=== PATIENT | female | born 1975 | race Caucasian/White ===

== ENCOUNTER 2021-01-14 18:41 | Outpatient (REF) | payer BC, MEDICARE, SELFPAY ==
--- NOTE | ~2021-01-14 | MR_ITS ---
EXAMINATION: MR CERVICAL SPINE WITHOUT CONTRAST CLINICAL INFORMATION: 45-year-old with complaints of neck pain radiating to both shoulders, with C4-5 radicular symptoms. Cervical disc disorder. COMPARISON: 04/22/2019 MRI. TECHNIQUE: MRI of the cervical spine was obtained using routine sequences without contrast. FINDINGS: Alignment: Normal. No spondylolisthesis or retrolisthesis. Craniocervical Junction/C1-C2 Articulations:?Intact and aligned. Visualized Intracranial Structures: Within normal limits. Vertebral Bodies: Normal height. Bone Marrow: No significant marrow-replacing process or bone marrow edema. C2-C3: Disc space height is well maintained. There is uncovertebral spurring bilaterally with a left paracentral disc protrusion stable in appearance with slight flattening of the dural sac asymmetric to the left without cord impingement unchanged in appearance. No significant canal or neuroforaminal stenosis. C3-C4: Disc space height is well maintained. Tiny central disc protrusion noted stable in appearance. Minor uncovertebral spurring noted left more than right unchanged in appearance with no significant canal or neuroforaminal stenosis. C4-C5: Moderate loss of disc space height is similar to the previous exam. Central disc herniation again noted which appears slightly diminished in size since previous exam on the axial views, with flattening of the central dural sac without cord impingement. The AP diameter of the central canal at this level now measures 7 mm compared to 6 mm on the previous exam consistent with slight improvement in the canal dimensions. Mild central canal stenosis though present. Bilateral uncovertebral spurring is again noted with [id number] right-sided and mild left-sided neural foraminal stenosis stable in appearance. C5-C6: Mild disc space height loss is stable from previous exam. Broad-based left paramedian to subarticular disc protrusion with mild flattening of the dural sac on the left is stable. Bilateral uncovertebral spurring is again noted, with [id number] left-sided and moderate right-sided neural foraminal stenosis, stable in appearance. C6-C7: Slight loss of disc space height stable in appearance. Slight broad-based disc bulging and mild flattening of the dural sac is stable. Minor anterior marginal endplate spurring unchanged. Bilateral uncovertebral disc osteophyte complex is again noted, with [id number] bilateral neural foraminal stenosis stable in appearance. C7-T1: Disc space height is well maintained without disc herniation or spondylosis. Mild facet hypertrophic changes are noted without significant canal or neuroforaminal stenosis, stable in appearance. T1-T2: Normal disc space height and signal without disc herniation or spondylosis and no significant facet arthrosis, canal or neuroforaminal stenosis. The cervical and visualized upper thoracic spinal cord is normal in signal intensity throughout, without focal lesion, edema or syrinx formation. Previously noted ventral cord impingement at C4-5 is improved. MR/MR cervical spine wo con IMPRESSION: 1. Mild decrease in size of previously noted C4-5 central disc herniation, with decreased mass effect on the ventral aspect of the thecal sac, with an improved contour to the anterior cord at this level. 2. Otherwise multilevel DDD, disc herniations and uncovertebral arthrosis bilaterally with the multilevel bilateral neural foraminal stenosis is largely stable in appearance.
== END 2021-01-14 18:42 | disposition home or self-care (01) ==
LOC: HO.MRI 18:41
PROVIDERS: PCP Hospitalist; Visit Provider Internal Medicine
DX: M50.121 Cervical disc disorder at C4-C5 level with radiculopathy (principal); M53.9 Dorsopathy, unspecified
CPT/HCPCS: 72141

== ENCOUNTER 2021-09-27 15:50 | Outpatient (REF) | payer BC, MEDICARE, SELFPAY ==
--- NOTE | ~2021-09-27 | MM_ITS ---
EXAMINATION: MM SCREENING DIGITAL BREAST TOMOSYNTHESIS, BILATERAL CLINICAL INFORMATION: Screening. Asymptomatic. The lifetime risk of breast cancer based on the Tyrer-Cuzick Model is 19%. COMPARISON: Mammography: 03/02/2019, 04/20/2017 TECHNIQUE: Digital breast tomosynthesis is performed in both the craniocaudal and mediolateral oblique views along with computer-aided detection (CAD). Synthesized 2D images are generated from the tomosynthesis. FINDINGS: The breasts are heterogeneously dense, which may obscure small masses (ACR BI-RADS breast composition Category c). There are no significant masses, abnormal calcifications, or other abnormalities. Parenchymal pattern is similar to prior studies. No developing density. The axilla and skin contours are unremarkable. MM/MM tomosynthesis screening BI IMPRESSION: No mammographic evidence of malignancy. ASSESSMENT: BI-RADS 1: Negative RECOMMENDATION: Routine annual mammography screening. This patient's information was entered into a reminder system with a target due date for their next mammogram.
== END 2021-09-27 15:51 | disposition home or self-care (01) ==
LOC: HO.MAMMO 15:50
PROVIDERS: Visit Provider Internal Medicine
DX: Z12.31 Encounter for screening mammogram for malignant neoplasm of breast (principal)
CPT/HCPCS: 77063; 77067

== ENCOUNTER 2022-07-28 07:46 | Outpatient (REF) | payer OTHER, MEDICARE, SELFPAY ==
[2022-07-28 11:18] LABS: MANUAL DIFF FLAG NO
[2022-07-28 11:34] LABS: Basophils Absolute Auto 0.1 X10*3/uL (0.0-0.2); Basophils Percent Auto 0.9 % (0-2); Eosinophils Absolute Auto 0.2 X10*3/uL (0.0-0.4); Eosinophils Percent Auto 3.3 % (0-4); Hematocrit 40.8 % (37.0-47.0); Hemoglobin 12.9 g/dl (12.0-16.0); Imm Gran Abs Auto 0.01 X10*3/uL (0.00-0.03); Imm Gran Pct Auto 0.2 % (0.0-0.4); Lymphocytes Percent Auto 34.6 % (20-40); Mean Corpuscular HGB Conc 31.6 g/dl (31.0-35.0); Mean Corpuscular Hemoglobin 29.6 pg (27.0-33.0); Mean Corpuscular Volume 93.6 fL (80.0-98.0); Monocytes Absolute Auto 0.4 X10*3/uL (0.1-1.2); Monocytes Percent Auto 6.7 % (2-11); Neutrophils Absolute Auto 3.2 x10*3/uL (2.0-8.3); Neutrophils Percent Auto 54.3 % (45-73); Platelet Count 339 X10*3/uL (160-400); Red Blood Count 4.36 X10*6/uL (4.20-5.50); Red Cell Distribution Width 13.1 % (11.0-16.0); White Blood Count 5.8 X10*3/uL (4.8-10.8)
[2022-07-28 11:48] LABS: Alanine Aminotransferase 11 U/L (0-31); Anion Gap 12 (12-20); Aspartate Amino Transferase 14 U/L (5-31); Blood Urea Nitrogen 11 mg/dL (9-16); Calcium 9.2 mg/dL (8.4-10.2); Carbon Dioxide 27 mmol/L (22-29); Chloride 106 mmol/L (96-108); Cholesterol 156 mg/dL; Estimated Glomerular Filt Rate > 60; Glucose Fasting 100 mg/dL (60-99); HDL Cholesterol 64 mg/dL; LDL Cholesterol Calculated 83 mg/dl; Potassium 4.4 mmol/L (3.3-5.1); Sodium 141 mmol/L (135-145); Triglycerides 45 mg/dL
[2022-07-28 12:12] LABS: Vitamin D 25-OH Total 21.8 ng/mL (>30)
== END 2022-07-28 07:47 | disposition home or self-care (01) ==
LOC: HO.HMGCLDS 07:46
PROVIDERS: PCP Internal Medicine; Visit Provider Internal Medicine
DX: Z00.01 Encounter for general adult medical examination with abnormal findings (principal); Z13.220 Encounter for screening for lipoid disorders
CPT/HCPCS: 36415; 80048; 80061; 82306; 84450; 84460; 85025

== ENCOUNTER 2022-10-06 08:30 | Outpatient (REF) | payer OTHER, MEDICARE, SELFPAY ==
--- NOTE | ~2022-10-06 | MM_ITS ---
EXAMINATION: MM DIAGNOSTIC DIGITAL BREAST TOMOSYNTHESIS, BILATERAL US DIAGNOSTIC ULTRASOUND BREAST, RIGHT CLINICAL INFORMATION: Due for yearly. 2 day history tender palpable nodule posteromedial right breast with erythema. The lifetime risk of breast cancer based on the Tyrer-Cuzick Model is 14%. COMPARISON: Mammography: 09/27/2021, 03/02/2019, 5 04/20/2017 (baseline). TECHNIQUE: Digital breast tomosynthesis is performed in both the craniocaudal and mediolateral oblique views along with computer-aided detection (CAD). Synthesized 2D images are generated from the tomosynthesis. Additional right spot CC view is obtained. Ultrasound right breast is targeted to the area of clinical concern posterior medial breast. Grayscale imaging and color Doppler are performed without and with harmonics. FINDINGS: There are scattered areas of fibroglandular density (ACR BI-RADS breast composition Category b). Breast tissue composition borders on heterogeneously dense. There is subtle oval nodular density at site of clinical concern posterior medial right breast near the sternum. The remainder of the bilateral breasts show no significant changes from prior studies. No developing density or architectural abnormality. No abnormal calcifications. The axilla are unremarkable. Ultrasound right breast demonstrates irregular hypoechoic branching predominantly intradermal lesion at site of clinical concern with possible subdermal extension. Overall dimensions are grossly 1.5 cm in length by 0.5 cm thickness. There is surrounding hyperemia on color Doppler. No color flow within the hypoechoic area. There is focal erythema noted in the overlying skin on visual inspection. Results and management options are discussed with the patient at time of visit. The finding most likely represents inflamed intradermal cysts/sebaceous cyst. Patient to follow-up with her primary care provider for clinical evaluation and additional follow-up as needed. Findings reviewed with [facility]. PCP office to be notified. MM/MM tomosynthesis diagnostic BI IMPRESSION: Right: -Palpable concern likely inflamed sebaceous cyst with possible subdermal extension. -Remainder right breast unremarkable. Left: -No mammographic evidence of malignancy. ASSESSMENT: BI-RADS 3: Probably Benign RECOMMENDATION: 1. Clinical evaluation and follow-up with ongoing management as appropriate. If clinically indicated, further evaluation may be considered with surgical consult. This ultrasound may serve as baseline for follow-up ultrasound if warranted. 2. Otherwise, routine annual screening mammography. This patient's information was entered into a reminder system with a target due date for their next mammogram.
== END 2022-10-06 08:31 | disposition home or self-care (01) ==
LOC: HO.MAMMO 08:30
PROVIDERS: PCP Internal Medicine; Visit Provider Internal Medicine
DX: N60.01 Solitary cyst of right breast (principal)
CPT/HCPCS: 76642; 77062; 77066

== ENCOUNTER 2023-10-07 08:50 | Outpatient (REF) | payer OTHER, MEDICARE, SELFPAY | END 2023-10-07 08:51 | disposition home or self-care (01) | LOC: HO.MAMMO 08:50 | PROVIDERS: PCP Internal Medicine; Visit Provider Internal Medicine | DX: Z12.31 Encounter for screening mammogram for malignant neoplasm of breast (principal) | CPT/HCPCS: 77063; 77067 ==

== ENCOUNTER → 2023-10-07 09:15 | Outpatient (BNV) | payer OTHER, MEDICARE, SELFPAY | PROVIDERS: PCP Internal Medicine; Visit Provider Radiology Diagnostic Radiology | DX: Z12.31 Encounter for screening mammogram for malignant neoplasm of breast (principal) | CPT/HCPCS: 77063; 77067 ==

== ENCOUNTER 2024-03-07 08:42 | Outpatient (AMB) | payer OTHER, MEDICARE, SELFPAY ==
[2024-03-07 08:49] VITALS: BP 142/80; PULSE 80; TEMP 36.6; O2SAT 97
--- NOTE | 2024-03-07 08:49 | AM.OFFWIN_ITS ---
Intake Vital Signs 03/07/24 08:49 Height 5 ft 8 in BP 142/80 H Blood Pressure Location Rt brachial Position Sitting Pulse 80 Pulse Source Pulse Oximeter Temp 97.8 F Temp Source Oral Pulse Oximetry (%) 97 Oxygen Delivery Method Room Air Intake Visit Reasons: EP Swollen ankle twisted over weekend Intake Note: pt is here for swollen ankle due to twisting ankle over the weekend Patient Tobacco Use Status: Former Tobacco user Allergies morphine Allergy (Unknown, Verified 03/07/24 09:05) hives Medication List - Last Reconciled 03/07/24 by Sal Meraz MD acetaminophen (Tylenol Extra Strength) 500 mg PO Q6H PRN albuterol sulfate 90 mcg/actuation 2 puffs inhalation Q6H PRN bupropion HCl XL 600 mg PO DAILY cholecalciferol (vitamin D3) 1,250 mcg PO QWEEK 3 months cyclobenzaprine 5 mg PO BID PRN dextroamphetamine-amphetamine 20 mg ER 1 cap PO DAILY ibuprofen 800 mg PO TID PRN lorazepam 0.5 mg PO DAILY Do you need a note to return to daycare/school/sports/work: No HPI EP Swollen ankle twisted over weekend HPI Details 48-year-old female presents to the [facility] for a sick visit. Over the weekend, patient twisted her ankle at the bottom of the steps inside the house. Her ankle is swollen with bruising over the foot. She has discomfort on bearing weight and is walking with a limp. [facility] Medical History Annual visit for general adult medical examination with abnormal findings Cervical disc disorder at C4-C5 level with radiculopathy Degenerative disc disease, cervical Depression with anxiety Mild intermittent asthma Osteoarthritis of hips, bilateral Vitamin D deficiency Surgical History History of arthroplasty of left hip Hx of section Family History Father Substance use disorder Paternal Uncle Prostate cancer Substance use disorder Mother Substance use disorder Mental health disorder Maternal Uncle Substance use disorder Maternal Uncle Substance use disorder Maternal Uncle Substance use disorder Social History Housing: House Alcohol intake: current Patient Tobacco Use Status: Former Tobacco user e-Cigarette/Vaping Use: Never Used service: No Current occupational status: unemployed Cognitive needs: No Hearing needs: No Vision needs: Yes Physical Exam Vital Signs: Last Vital Signs Temp 97.8 F 03/07/24 08:49 Pulse 80 03/07/24 08:49 BP 142/80 H 03/07/24 08:49 Pulse Ox 97 03/07/24 08:49 Oxygen Delivery Method Room Air 03/07/24 08:49 Extrem Other: Left foot: Significant swelling over the medial and lateral malleolus. Pain on flexion of the foot. Bruising over the dorsum of the foot more laterally. Pain on palpation over the head of the 4th and 5th metatarsal. Assessment & Plan Assessment & Plan (1) Contusion of foot, left: Code(s): S90.32XA - Contusion of left foot, initial encounter Plan: X-ray images were personally reviewed by me. No fracture seen. DIXIE Wrap, Air Cast and 600 mg Motrin. Advised to use ice packs. Orders: Orders XR foot LT 2V Today S90.32XA - Contusion of left foot, initial encounter XR ankle LT min 3V Today S93.402A - Sprain of unspecified ligament of left ankle, initial encounter Coding Level of Care Code Est Pt Level 4 (51663) Diagnoses Contusion of foot, left S90.32XA
== END 2024-03-07 09:59 | disposition home or self-care (01) ==
PROVIDERS: PCP Internal Medicine; Visit Provider Internal Medicine
DX: S90.32XA Contusion of left foot, initial encounter (principal)
CPT/HCPCS: 99214

== ENCOUNTER 2024-03-07 09:09 | Outpatient (REF) | payer OTHER, MEDICARE, SELFPAY ==
--- NOTE | ~2024-03-07 | XR_ITS ---
EXAMINATION: XR LEFT ANKLE XR LEFT FOOT CLINICAL INFORMATION: Contusion of left foot. Left ankle sprain. COMPARISON: None. TECHNIQUE: AP, lateral and oblique views of the left foot were obtained. AP and oblique views of the left ankle were obtained. FINDINGS: Alignment is anatomic. Ankle mortise is maintained. The talar dome is intact. Posterior calcaneal spur. There is a linear fragment seen along the lateral aspect of the calcaneus and possibly the cuboid with surrounding soft tissue swelling possibly representing an avulsion fracture. XR/XR ankle LT 2V IMPRESSION: Possible avulsion fracture involving the lateral aspect of the calcaneus and possibly the cuboid. Advise correlation with point tenderness on exam.
--- NOTE | ~2024-03-07 | XR_ITS ---
EXAMINATION: XR LEFT ANKLE XR LEFT FOOT CLINICAL INFORMATION: Contusion of left foot. Left ankle sprain. COMPARISON: None. TECHNIQUE: AP, lateral and oblique views of the left foot were obtained. AP and oblique views of the left ankle were obtained. FINDINGS: Alignment is anatomic. Ankle mortise is maintained. The talar dome is intact. Posterior calcaneal spur. There is a linear fragment seen along the lateral aspect of the calcaneus and possibly the cuboid with surrounding soft tissue swelling possibly representing an avulsion fracture. XR/XR foot LT min 3V IMPRESSION: Possible avulsion fracture involving the lateral aspect of the calcaneus and possibly the cuboid. Advise correlation with point tenderness on exam.
== END 2024-03-07 09:10 | disposition home or self-care (01) ==
LOC: HO.HMGCX 09:09
PROVIDERS: PCP Internal Medicine; Visit Provider Internal Medicine
DX: S90.32XA Contusion of left foot, initial encounter (principal); S93.402A Sprain of unspecified ligament of left ankle, initial encounter
CPT/HCPCS: 73600; 73630

== ENCOUNTER 2024-03-28 09:56 | Outpatient (AMB) | payer OTHER, MEDICARE, SELFPAY ==
[2024-03-28 09:58] VITALS: BP 144/88; PULSE 89; O2SAT 99; BMI 33.5
--- NOTE | 2024-03-28 09:58 | A.OFFPC_ITS ---
Vital Signs 03/28/24 09:58 Height 5 ft 8 in Weight 220 lb 8 oz BMI 33.5 BP 144/88 H Blood Pressure Location Lt brachial Position Sitting Pulse 89 Pulse Source Pulse Oximeter Pulse Oximetry (%) 99 Oxygen Delivery Method Room Air Intake Visit Reasons: follow-up to ankle/foot injury Intake Note: Pt is here today for follow up from walk in 03/07/24, pt states she still in pain. Allergies morphine Allergy (Unknown, Verified 03/28/24 10:10) hives Medication List - Last Reconciled 03/28/24 by Marti Mchugh MD acetaminophen (Tylenol Extra Strength) 500 mg PO Q6H PRN albuterol sulfate 90 mcg/actuation 2 puffs inhalation Q6H PRN bupropion HCl XL 600 mg PO DAILY cholecalciferol (vitamin D3) 1,250 mcg PO QWEEK 3 months cyclobenzaprine 5 mg PO BID PRN dextroamphetamine-amphetamine 20 mg ER 1 cap PO DAILY ibuprofen 800 mg PO TID PRN lorazepam 0.5 mg PO DAILY Tobacco use date assessed: 03/28/24 HPI follow-up to ankle/foot injury HPI Details 48-year-old lady here today for follow-u p after recent walk-in clinic visit, 03/07/2024, where she came in complaining of pain and swelling in left ankle, after she twisted her ankle at the bottom of the steps inside her house. X-ray of foot and ankle showed possible avulsion fracture involving the lateral aspect of the calcaneus and possibly the cuboid. She was given a splint during that visit which she took off immediately, as it was giving her more pain. Has been walking on affected foot since that visit but unable to walk for extended periods of time as it starts hurting. [facility] Medical History Avulsion fracture of calcaneus with delayed healing Vitamin D deficiency Annual visit for general adult medical examination with abnormal findings Cervical disc disorder at C4-C5 level with radiculopathy Depression with anxiety Degenerative disc disease, cervical Mild intermittent asthma Osteoarthritis of hips, bilateral Surgical History Hx of section History of arthroplasty of left hip Family History Father Substance use disorder Paternal Uncle Prostate cancer Substance use disorder Mother Substance use disorder Mental health disorder Maternal Uncle Substance use disorder Maternal Uncle Substance use disorder Maternal Uncle Substance use disorder Social History Housing: House Alcohol intake: current Patient Tobacco Use Status: Former Tobacco user e-Cigarette/Vaping Use: Never Used service: No Current occupational status: unemployed Cognitive needs: No Hearing needs: No Vision needs: Yes Questionnaire Thrive Questionnaire Date Thrive assessed: 07/15/22 CARLOS-7 AMB Questionnaire CARLOS-7 Date CARLOS - 7 assessed: 07/15/22 Source: Developed by Drs. Jesus Douglas, Jessenia Andrew, Charli Person and colleagues, with an educational halie from [employer] Review of Systems Const All systems reviewed & are unremarkable except as noted in HPI and below Physical exam (Primary Care) Vital Signs: Last Vital Signs Pulse 89 03/28/24 09:58 BP 144/88 H 03/28/24 09:58 Pulse Ox 99 03/28/24 09:58 Oxygen Delivery Method Room Air 03/28/24 09:58 BMI result Body Mass Index 33.5 Tobacco/Smoking Status: Tobacco use Status Tobacco use date assessed 03/28/24 03/28/24 10:02 Patient Tobacco Use Status Former Tobacco user 03/28/24 10:02 e-Cigarette/Vaping Use Never Used 03/28/24 10:02 Thrive Assessment: Date of Thrive Assessment Date Thrive assessed 07/15/22 03/28/24 10:02 Const Other: Alert oriented x3, no acute distress noted ambulatory with a slight limp favoring left leg Extrem Other: Decreased range of motion of left ankle, tenderness on palpation over lateral aspect of left malleolus with slight swelling overlying affected area. Assessment and Plan Assessment & Plan (1) Avulsion fracture of calcaneus with delayed healing: Code(s): S92.009G - Unspecified fracture of unspecified calcaneus, subsequent encounter for fracture with delayed healing Plan: Left foot placed in rigid boot. Advised to rest affected foot, apply ice to affected area every 4 hours as needed, may take ibuprofen as needed for pain. Referred to orthopedics for further evaluation management as patient is still experiencing pain on weight-bearing. Orders: Referrals Orthopedics Referral S92.009G - Unspecified fracture of unspecified calcaneus, subsequent encounter for fracture with delayed healing Coding Level of Care Code Est Pt Level 4 (99517) Diagnoses Avulsion fracture of calcaneus with delayed healing S92.009G
== END 2024-03-28 11:11 | disposition home or self-care (01) ==
LOC: HO.HMGC 09:56
PROVIDERS: PCP Internal Medicine; Visit Provider Internal Medicine
DX: S92.009 Unspecified fracture of unspecified calcaneus (principal)
CPT/HCPCS: 99214

== ENCOUNTER 2024-04-14 11:10 | Outpatient (AMB) | payer OTHER, MEDICARE, SELFPAY ==
--- NOTE | 2024-04-14 11:12 | A.OFFVIS_ITS ---
Intake Visit Reasons: FC- Avulsion fx of calcaneus LT foot Intake Note: Suzanne is a 48 year old female who presents today for a evaluation of her left calcaneus fx, DOI 03/05/24. Patient reports she rolled her ankle when she missed the last step when going down the stairs. She expresses having a pulling sensati on with sitting and walking. Allergies morphine Allergy (Unknown, Verified 04/14/24 11:20) hives HPI HPI FC- Avulsion fx of calcaneus LT foot: Details: 48-year-old female who presents in the office today, as a new patient, for an evaluation of left ankle pain. The patient was seen at the Walk-in clinic on 03/07/2024 status post twisting her left ankle the weekend prior (03/05/2024- 03/06/2024) at the bottom of her steps. X-rays were obtained. She was placed in an DIXIE wrap and Air cast. The patient followed up with her PCP on 03/28/2024 where she reported immediately removing the Air cast due to increased pain. She was then placed in a rigid boot. While in the office today the patient reports she rolled her left ankle when she missed the last step while going down the stairs. She claims to have a pulling sensation with sitting and ambulating. [facility] Medical History Avulsion fracture of calcaneus with delayed healing Vitamin D deficiency Annual visit for general adult medical examination with abnormal findings Cervical disc disorder at C4-C5 level with radiculopathy Depression with anxiety Degenerative disc disease, cervical Mild intermittent asthma Osteoarthritis of hips, bilateral Surgical History Hx of section History of arthroplasty of left hip Family History Father Substance use disorder Paternal Uncle Prostate cancer Substance use disorder Mother Substance use disorder Mental health disorder Maternal Uncle Substance use disorder Maternal Uncle Substance use disorder Maternal Uncle Substance use disorder Social History (Updated 04/14/24 @ 11:22 by Richard Perry) Housing: House Alcohol intake: current Alcohol intake frequency: holidays/special occasions only Patient Tobacco Use Status: Former Tobacco user e-Cigarette/Vaping Use: Never Used Substance Use Type: Marijuana service: No Current occupational status: unemployed Cognitive needs: No Hearing needs: No Vision needs: Yes Review of Systems Const All systems reviewed & are unremarkable except as noted in HPI and below Physical Exam Const General: cooperative and no acute distress Orientation/consciousness: patient oriented x3 Resp Effort & Inspection: normal respiratory effort and able to speak in complete sentences Cardio Peripheral pulses: Peripheral pulses 2+ throughout Skin General skin exam: no rashes or lesions noted Neuro General: patient oriented x3 Extrem Other: Left ankle: Tenderness to palpation along the tibial tendon and peroneal tendons. Able to dorsiflex and plantarflex. Pedal pulse intact. Sensation intact. Assessment & Plan Assessment & Plan (1) Avulsion fracture of left ankle: Code(s): S82.892A - Other fracture of left lower leg, initial encounter for closed fracture Category: Medical Plan Ms. Yael Valdez is a 48-year-old female who presents in the office today, as a new patient, for an evaluation of left ankle pain. The patient was seen at the Walk-in clinic on 03/07/2024 status post twisting her left ankle the weekend prior (03/05/2024-03/06/2024) at the bottom of her steps. X-rays were obtained. She was placed in an DIXIE wrap and Air cast. The patient followed up with her PCP on 03/28/2024 where she reported immediately removing the Air cast due to increased pain. She was then placed in a rigid boot. While in the office today the patient reports she rolled her left ankle when she missed the last step while going down the stairs. She claims to have a pulling sensation with sitting and ambulating. The patient may continue to wear the short walking boot. She was provided with a lace up ankle brace, off the shelf, in the office today. I would like for her to begin to wean out of the walking boot and into the lace up ankle brace over the next one to two weeks. A referral was placed for the patient to attend physical therapy, which will help her in the weaning process. I encouraged the patient that she will need to be out of the walking boot completely in the next one to two weeks to avoid stiffness. Follow-up will be in six weeks, or sooner if needed. X-rays of the left foot/ankle, obtained on 03/07/2024, revealed: Possible avulsion fracture involving the lateral aspect of the calcaneus and possibly the cuboid. Patient Instructions: Scribed by Ira Gutierrez medical records receptionist, for Milena Mejia PA-C on 04/14/2024 at 11:32 am, EST. Coding Level of Care Code New Pt Level 4 (80962) Diagnoses Avulsion fracture of left ankle S82.892A
== END 2024-04-14 12:01 | disposition home or self-care (01) ==
PROVIDERS: PCP Internal Medicine; Visit Provider Physician Assistant
DX: S82.892A Other fracture of left lower leg, initial encounter for closed fracture (principal)
CPT/HCPCS: 99204

== ENCOUNTER → 2024-04-14 11:10 | Outpatient (BNVA) | payer OTHER, MEDICARE, SELFPAY | PROVIDERS: PCP Internal Medicine; Visit Provider Physician Assistant | DX: S82.892A Other fracture of left lower leg, initial encounter for closed fracture (principal) | CPT/HCPCS: 99202 ==

== ENCOUNTER 2024-05-27 09:04 | Outpatient (AMB) | payer OTHER, MEDICARE, SELFPAY ==
[2024-05-27 09:19] VITALS: BMI 33.5
--- NOTE | 2024-05-27 09:19 | A.OFFVIS_ITS ---
Vital Signs 05/27/24 09:19 Height 5 ft 8 in Weight 220 lb 8 oz BMI 33.5 Intake Visit Reasons: OV- Avulsion fx of calcaneus LT foot-Follow up Intake Note: Suzanne is a 48 year old female who presents today for a evaluation of her left calcaneus fx, DOI 03/05/24. Patient reports she thinks she is doing good. Patient has been going to PT which she finds helpful. They have been working on better positioning of the foot when weight bearing. Patient has no complaints or concerns today. Allergies morphine Allergy (Unknown, Verified 05/27/24 09:20) hives HPI HPI OV- Avulsion fx of calcaneus LT foot-Follow up: Details: 48-year-old female who presents in the office today for a follow-up of a left ankle avulsion fracture, which occurred in early 02/2024 status post twisting her left ankle. I last saw the patient in the office on 04/14/24 when she was to continue to wear the boot for an additional two weeks. She was supplied a lace- up ankle brace and was referred to physical therapy.? ? While in the office today, the patient reports she is doing good. She confirms participating in PT with mild progress and states this has been helping her with positioning of her foot when weight bearing. She has no concerns or complaints at this time. ? ? Patient presented in the office today wearing the walking boot. She reports continued pain along the lateral aspect of the left foot. [facility] Medical History Avulsion fracture of calcaneus with delayed healing Vitamin D deficiency Annual visit for general adult medical examination with abnormal findings Cervical disc disorder at C4-C5 level with radiculopathy Depression with anxiety Degenerative disc disease, cervical Mild intermittent asthma Osteoarthritis of hips, bilateral Surgical History Hx of section History of arthroplasty of left hip Family History Father Substance use disorder Paternal Uncle Prostate cancer Substance use disorder Mother Substance use disorder Mental health disorder Maternal Uncle Substance use disorder Maternal Uncle Substance use disorder Maternal Uncle Substance use disorder Social History (Updated 04/14/24 @ 11:22 by Richard Perry) Housing: House Alcohol intake: current Alcohol intake frequency: holidays/special occasions only Patient Tobacco Use Status: Former Tobacco user e-Cigarette/Vaping Use: Never Used Substance Use Type: Marijuana service: No Current occupational status: unemployed Cognitive needs: No Hearing needs: No Vision needs: Yes Review of Systems Const All systems reviewed & are unremarkable except as noted in HPI and below Physical Exam Vital Signs: BMI result Body Mass Index 33.5 Const General: cooperative, healthy appearing and no acute distress Resp Effort & Inspection: normal respiratory effort and able to speak in complete sentences Cardio Rate: regular rate Peripheral pulses: Peripheral pulses 2+ throughout GI Palpation (GI): Soft to palpation Skin Lesions: no lesions Rashes: no rashes Extrem Other: Left ankle: Normal to inspection. No ecchymosis, erythema, or edema. Tenderness over the tibial tendon and peroneal tendon.?Patient is able to demonstrate dorsiflexion, plantar flexion, pronation and supination. Negative anterior drawer. Sensation intact. Pedal Pulse intact.? Assessment & Plan Assessment & Plan (1) Avulsion fracture of left ankle: Code(s): S82.892A - Other fracture of left lower leg, initial encounter for closed fracture Category: Medical Plan Ms. Yael Valdez is a 48-year-old female who presents in the office today for a follow-up of a left ankle avulsion fracture, which occurred in early 02/2024 status post twisting her left ankle. I last saw the patient in the office on 04/14/24 when she was to continue to wear the boot for an additional two weeks. She was supplied a lace-up ankle brace and was referred to physical therapy.? ? While in the office today, the patient reports she is doing good. She confirms participating in PT with mild progress and states this has been helping her with positioning of her foot when weight bearing. She has no concerns or complaints at this time. ? ? Patient presented in the office today wearing the walking boot. She reports continued pain along the lateral aspect of the left foot.? ? I reiterated to the patient that she needs to discontinue the use of the boot beginning today. She is able to wear the lace-up ankle brace supplied to her at her last appointment should she need support. She will continue to attend physical therapy. Follow-up will be in four to six weeks for a ROM check, or sooner if needed. ? ? X-rays of the left ankle which were obtained while in the office today and were reviewed by me, Milena Mejia PA-C, revealed routine healing of a left ankle avulsion fracture. ? Orders: Orders XR foot LT min 3V Today M79.673 - Pain in unspecified foot Patient Instructions: Scribed by Ira Gutierrez, medical review specialist, for Milena Mejia PA-C on 05/27/2024 at 9:08 am, EST.? Coding Level of Care Code Est Pt Level 3 (56546) Diagnoses Avulsion fracture of left ankle S82.892A
== END 2024-05-27 09:44 | disposition home or self-care (01) ==
PROVIDERS: PCP Internal Medicine; Visit Provider Physician Assistant
DX: S82.892A Other fracture of left lower leg, initial encounter for closed fracture (principal)
CPT/HCPCS: 99213

== ENCOUNTER 2024-05-27 09:23 | Outpatient (REF) | payer OTHER, MEDICARE, SELFPAY ==
--- NOTE | ~2024-05-27 | XR_ITS ---
EXAMINATION: XR FOOT, LEFT CLINICAL INFORMATION: Pain. COMPARISON: None available. TECHNIQUE: AP, lateral, and oblique views of the left foot. FINDINGS: Bony alignment and mineralization are normal. No fracture, dislocation or left ankle joint effusion is seen. Boehler's angle is normal. There is a small posterior calcaneal spur. There is no focal bone erosion. There are mild degenerative changes of the dorsal midfoot. No focal soft tissue swelling, gas or foreign body is seen. XR/XR foot LT min 3V IMPRESSION: 1. No fracture, dislocation or left ankle joint effusion is seen. 2. There is a small posterior calcaneal spur. Electronically signed by: Thomas Seo MD 06/20/2024 05:29 PM EDT RP
== END 2024-05-27 09:24 | disposition home or self-care (01) ==
LOC: HO.HOSX 09:23
PROVIDERS: Visit Provider Physician Assistant
DX: M77.32 Calcaneal spur, left foot (principal)
CPT/HCPCS: 73630; 99212

== ENCOUNTER 2024-06-23 08:00 | Outpatient (RCR) | payer OTHER, MEDICARE, SELFPAY ==
--- NOTE | 2024-05-06 13:52 | MHC.PT.EP ---
[facility] [place] Office [place] Office [place] Office [address] Patel Wilcox [address] [phone] F: [phone] F: [phone] F: [phone] F: [phone] Physical Therapy Plan of Care Date of Evaluation: 05/06/24 Date of Surgery: 03/05/24 Diagnosis: fracture of left lower leg (RL) possible L calcaneal vs. cuboid fracture DOI 03/05/24 Assessment: pt is a 48 y/o female presenting to physical therapy w/ referring diagnosis of other fracture of left lower leg, initial encounter for closed fracture. pt sustained a ? L lateral calcaneal and/or cuboid fracture on 03/05/24. She has since ambulated on her foot for two weeks without any protection. She has not had any additional imaging since her first xray back on 03/07/24. I am hesitant to progress her weightbearing and will reach out to the orthopedic PA on her case. Otherwise, she does have another follow-up w/ them on 05/27/24. Impairments include pain, decreased range of motion, decreased strength, impaired functional mobility, impaired postural awareness, and altered ambulation mechanics. pt is a good candidate for skilled PT due to age, potential remediation of impairments, typical disease/condition progression and prognosis, comorbidities, and motivation. pt would benefit from skilled PT intervention to provide a tailored strengthening and stretching exercise program, functional training, gait training, postural re-training, neuromuscular re-education, modalities as needed for pain, equipment safety demonstration. Frequency and Duration: The patient will be seen 2x/wk for 6 wks Short Term Goals: pt will be I w/ HEP to promote self-management of condition. pt will improve L ankle DF by at least 10 degrees to normalize tibial translation w/ ambulation mechanics. pt will ambulate household distances w/ AFO reporting <3-4/10 L ankle/foot pain. Manufacturing Teacher Goals: pt will ascend/descend 12 stairs w/ reciprocal pattern using railing to promote improved access to bedroom/bathroom. pt will report a statistically significant improvement in self-reported outcome measure, LEFI, to promote return to PLOF. pt will ambulate >2600' w/o AD or brace to promote ease in community navigation for grocery shopping. Treatment Plan: Modalities to reduce pain, spasms and effusion. Manual therapy to restore motion and function. Therapeutic exercise to improve strength and flexibility. Neuromuscular re-education for posture and balance. Therapeutic activities to return to functional activities of daily living. Electronically signed by: Sylvie Phelps PT, DPT Please sign and return to therapist. Thank you for your referral.
--- NOTE | 2024-07-12 15:20 | MHC.PT.DC ---
[facility] [place] Office [place] Office [place] Office [address] Patel Wilcox [address] [phone] F: [phone] F: [phone] F: [phone] F: [phone] Physical Therapy Discharge Report Diagnosis: fracture of left lower leg (RL) possible L calcaneal vs. cuboid fracture DOI 03/05/24 Date of Surgery: 03/05/24 Date of Evaluation: 05/06/24 Date of Discharge: 07/12/24 Treatments to Date: 13 Cancellations to Date: 2 No Shows to Date: 0 Discharge Status: Improved Function Independent with HEP Discharge Summary: Soreness around ankle most likely d-t increase in activity. Pt feels ready to transition to a home strengthening program. HEP developed and reviewed. Pt demonstrated understanding of all exercises. Assessed achievement of goals at end of session. She has follow-up w/ ortho tomorrow. I told her I would keep her chart open for 1-2 weeks. If she requires additional PT I advised her to call us and book something. If I do not hear from her in that time I will D/C the chart. Electronically signed by: Sylvie Phelps PT, DPT Please sign and return to therapist. Thank you for your referral.
== END 2024-07-12 15:21 | disposition home or self-care (01) ==
LOC: HO.PT 08:00
PROVIDERS: PCP Internal Medicine; Visit Provider Physician Assistant
DX: S82.892D Other fracture of left lower leg, subsequent encounter for closed fracture with routine healing (principal)
CPT/HCPCS: 97110; 97116; 97140; 97162; 97530

== ENCOUNTER 2024-06-24 07:34 | Outpatient (REF) | payer OTHER, MEDICARE, SELFPAY ==
--- NOTE | ~2024-06-24 | XR_ITS ---
EXAMINATION: XR FOOT, LEFT CLINICAL INFORMATION: Left foot pain COMPARISON: 05/27/2024 TECHNIQUE: AP, lateral, and oblique views of the left foot. FINDINGS: No fracture or malalignment. Mild osteoarthritis of the talonavicular joint and 1st MTP joint. XR/XR foot LT min 3V IMPRESSION: Mild osteoarthritis. No fracture. Electronically signed by: Jimbo Hubbard MD 06/30/2024 09:01 AM EDT
== END 2024-06-24 07:35 | disposition home or self-care (01) ==
LOC: HO.HOSX 07:34
PROVIDERS: PCP Internal Medicine; Visit Provider Physician Assistant
DX: S82.892A Other fracture of left lower leg, initial encounter for closed fracture (principal)
CPT/HCPCS: 73630

== ENCOUNTER 2024-06-24 07:55 | Outpatient (AMB) | payer OTHER, MEDICARE, SELFPAY ==
--- NOTE | 2024-06-24 08:01 | A.OFFVIS_ITS ---
Intake Visit Reasons: OV-Avulsion fx of calcaneus LT foot-w/xray Intake Note: Suzanne is a 48 year old female who presents today for a ROM check of her left calcaneus fx, DOI 03/05/24. Patient reports her ROM had improved but she feels a pulling sensation on the lateral aspect of her foot. She mentions that she finished with PT and they gave her bands to practice the exercises at home. Allergies morphine Allergy (Unknown, Verified 06/24/24 08:05) hives HPI HPI OV-Avulsion fx of calcaneus LT foot-w/xray: Details: 48-year-old female who presents in the office today for a ROM check and follow- up of a left ankle avulsion fracture, which occurred in early 02/2024 status post twisting her left ankle. I last saw the patient in the office on 05/27/2024 when I expressed that she needed to discontinue the use of the walking boot. She was encouraged to use the?lace-up brace supplied at an earlier appointment should she need support. She was also encouraged to continue to work with physical therapy. ? ? While in the office today, the patient reports her ROM has improved but she feels a pulling sensation on the lateral aspect of the left foot. She confirms completion of PT and states they gave her bands to continue to work on a home exercise program. ? [facility] Medical History Avulsion fracture of calcaneus with delayed healing Vitamin D deficiency Annual visit for general adult medical examination with abnormal findings Cervical disc disorder at C4-C5 level with radiculopathy Depression with anxiety Degenerative disc disease, cervical Mild intermittent asthma Osteoarthritis of hips, bilateral Surgical History Hx of section History of arthroplasty of left hip Family History Father Substance use disorder Paternal Uncle Prostate cancer Substance use disorder Mother Substance use disorder Mental health disorder Maternal Uncle Substance use disorder Maternal Uncle Substance use disorder Maternal Uncle Substance use disorder Social History Housing: House Alcohol intake: current Alcohol intake frequency: holidays/special occasions only Patient Tobacco Use Status: Former Tobacco user e-Cigarette/Vaping Use: Never Used Substance Use Type: Marijuana service: No Current occupational status: unemployed Cognitive needs: No Hearing needs: No Vision needs: Yes Review of Systems Const All systems reviewed & are unremarkable except as noted in HPI and below Physical Exam Const General: cooperative, healthy appearing and no acute distress Resp Effort & Inspection: normal respiratory effort and able to speak in complete sentences Cardio Rate: regular rate Peripheral pulses: Peripheral pulses 2+ throughout GI Palpation (GI): Soft to palpation Skin Lesions: no lesions Rashes: no rashes Extrem Other: Left foot/ankle: Normal to inspection. No ecchymosis, erythema, or edema. Slight tenderness to palpation over the lateral aspect of the left foot. Patient is able to demonstrate dorsiflexion, plantar flexion, pronation and supination. Negative anterior drawer. Sensation intact. Pedal Pulse intact. Assessment & Plan Assessment & Plan (1) Avulsion fracture of left ankle: Code(s): S82.892A - Other fracture of left lower leg, initial encounter for closed fracture Category: Medical Plan Ms. Yael Valdez is a 48-year-old female who presents in the office today for a ROM check and follow-up of a left ankle avulsion fracture, which occurred in early 02/2024 status post twisting her left ankle. I last saw the patient in the office on 05/27/2024 when I expressed that she needed to discontinue the use of the walking boot. She was encouraged to use the?lace-up brace supplied at an earlier appointment should she need support. She was also encouraged to continue to work with physical therapy. ?? ? While in the office today, the patient reports her ROM has improved but she feels a pulling sensation on the lateral aspect of the left foot. She confirms completion of PT and states they gave her bands to continue to work on a home exercise program.? ? The patient will continue to work on her home exercise program. Follow-up will be PRN, or sooner if needed. ? ? X-rays of the left ankle which were obtained while in the office today and were reviewed by me, Milena Mejia PA-C, revealed routine healing of a left ankle avulsion fracture. Orders: Orders XR foot LT min 3V Today M79.673 - Pain in unspecified foot Patient Instructions: Scribed by Ira Gutierrez, medical accountant, for Milena Mejia PA-C on 06/24/2024 at 7:59 am, EST.? Coding Level of Care Code Est Pt Level 3 (99470) Complex EM visit Add On G2211 Diagnoses Avulsion fracture of left ankle S82.892A
== END 2024-06-24 08:38 | disposition home or self-care (01) ==
PROVIDERS: PCP Internal Medicine; Visit Provider Physician Assistant
DX: S82.892A Other fracture of left lower leg, initial encounter for closed fracture (principal)
CPT/HCPCS: 99213

== ENCOUNTER 2024-09-21 08:21 | Outpatient (AMB) | payer OTHER, MEDICARE, SELFPAY ==
--- NOTE | 2024-09-21 08:31 | A.OFFPC_ITS ---
Vital Signs 09/21/24 08:33 Height 5 ft 8 in Weight 212 lb BMI 32.2 BP 160/100 H Blood Pressure Location Lt brachial Position Sitting Pulse 75 Pulse Source Pulse Oximeter Pulse Oximetry (%) 98 Oxygen Delivery Method Room Air Intake Visit Reasons: Annual PE/Overdue last PE Intake Note: Pt is here today for her PE: last mammogram 10/07/23 Allergies morphine Allergy (Unknown, Verified 09/21/24 08:59) hives Medication List - Last Reconciled 09/21/24 by Marti Mchugh MD acetaminophen (Tylenol Extra Strength) 500 mg PO Q6H PRN albuterol sulfate 90 mcg/actuation 2 puffs inhalation Q6H PRN bupropion HCl XL 600 mg PO DAILY cholecalciferol (vitamin D3) 25 mcg PO DAILY cyclobenzaprine 5 mg PO BID PRN dextroamphetamine-amphetamine 20 mg ER 1 cap PO DAILY ibuprofen 800 mg PO TID PRN lorazepam 0.5 mg PO DAILY Tobacco use date assessed: 09/21/24 Dental Screening Dental Screen Date: 09/21/24 Did you have a dental visit in the last 12 months?: Yes Did you have a dental problem in the last 6 months where you did not have access to dental care?: No Was dental information given to patient?: Patient has dentist HPI Annual PE/Overdue last PE HPI Details 48-year-old female presenting today for her physical exam. She has been having irregular menstrual cycle, transitioning into menopausal symptoms and has been experiencing manageable hot flashes and irregular periods. She has a history of cervical cysts and he is overdue for Pap smear, been over five years since her last one.. She is up-to-date with his screening mammogram, done 10/07/2023. She has cervical degenerative disc disease with chronic pain, no relief with physical therapy. currently managed without medication. She has been seen and evaluated by Neurosurgery, Dr. castro, in 2020 re-evaluated her MRI of cervical spine which showed severe foraminal stenosis bilaterally at C4-C5 and on the left at C5-C6, found to be a good candidate for ACDF C4-C6 and also given the option for spinal injections, but patient not keen on getting any invasive treatment at that time. She recently had a right hip replacement due to severe osteoarthritis and reports a previous avulsion fracture left ankle, seen by Orthopedics and underwent physical therapy 02/2024. She tries to have regular exercise, currently swims regularly and does yoga She also states that she has been avoiding pain medications but has been occasionally using marijuana for anxiety and for pain management Noted to have blood pressure consistently high, currently not on any medication. Denies headache, no chest pain or shortness of breath, no li ghtheadedness. Reported. Has history of vitamin D deficiency currently taking vitamin-D 3000 units daily . She has had basal cell carcinoma treated successfully with no current dermatological concerns except for routine surveillance. She has mild intermittent asthma management , usually aggravated by change in seasons, management consists only of albuterol inhaler used as needed for episodes of bronchospasm and wheezing. She is currently being seen by psychiatrist for her depression and anxiety, stable and controlled on present treatment. . [facility] Medical History (Updated 09/21/24 @ 09:42 by Marti Mchugh MD) Essential hypertension Avulsion fracture of calcaneus with delayed healing Vitamin D deficiency Annual visit for general adult medical examination with abnormal findings Cervical disc disorder at C4-C5 level with radiculopathy Depression with anxiety Degenerative disc disease, cervical Mild intermittent asthma Osteoarthritis of hips, bilateral Surgical History Hx of section History of arthroplasty of left hip Family History Father Substance use disorder Paternal Uncle Prostate cancer Substance use disorder Mother Substance use disorder Mental health disorder Maternal Uncle Substance use disorder Maternal Uncle Substance use disorder Maternal Uncle Substance use disorder Social History Housing: House Alcohol intake: current Alcohol intake frequency: holidays/special occasions only Patient Tobacco Use Status: Former Tobacco user e-Cigarette/Vaping Use: Never Used Substance Use Type: Marijuana service: No Current occupational status: unemployed Cognitive needs: No Hearing needs: No Vision needs: Yes Questionnaire PHQ-9 Over the last 2 weeks, how often have you been bothered by any of the following problems? 1. Little interest or pleasure in doing things: not at all 2. Feeling down, depressed, or hopeless: several days 3. Trouble falling or staying asleep, or sleeping too much: several days 4. Feeling tired or having little energy: several days 5. Poor appetite or overeating: several days 6. Feeling bad about yourself - or that you are a failure or have let yourself or your family down: not at all 7. Trouble concentrating on things, such as reading the newspaper or watching television: several days 8. Moving or speaking so slowly that other people could have noticed. Or the opposite - being so fidgety or restless that you have been moving around a lot more than usual: not at all 9. Thoughts that you would be better off or of hurting yourself in some way: not at all Total score: 5 Depression Screening Interpretation: Positive (currently followed by [facility] - [facility] ) Depression Screening Follow-up: Existing condition, In treatment and Community Mental Health Worker F/U Depression Screening Done: Yes 94032 - PHQ-9 Billing: Yes Source: Developed by Drs. Jesus Douglas, Jessenia Andrew, Charli Person and colleagues, with an educational halie from [employer] Thrive Questionnaire Date Thrive assessed: 09/21/24 I am a: Patient What is your living situation today?: I have a steady place to live Within the past 12 months, did the food you bought not last and you didn't have the money to get more?: Never true Within the past 12 months, did you worry whether your food would run out before you got money to buy more?: Never true Do you have trouble paying for medicines?: No Do you have trouble getting transportation to medical appointments?: No Do you have trouble paying your heating and electricity bill?: No Do you have trouble taking care of your child, family member or friend?: No Do you have trouble with day-to-day activities such as bathing, preparing meals, shopping, managing finances, etc.?: Yes Are you currently unemployed and looking for a job?: No Are you interested in more education?: I choose not to answer this question Please select the resources that you would like help with: None Currently or been in a relationship where the following occur: No concerns reported THRIVE Score: 0 AUDIT C Alcohol Use Questionnaire (AUDIT-C) 1. How often do you have a drink containing alcohol?: Monthly or less 2. How many drinks containing alcohol do you have on a typical day when you are drinking?: 3 or 4 3. How often do you have six or more drinks on one occasion?: Less than monthly Total Score: 3 CARLOS-7 AMB Questionnaire CARLOS-7 Date CARLOS - 7 assessed: 09/21/24 Feeling nervous, anxious, or on edge: 1 = Several days Not being able to stop or control worryin = Several days Worrying too much about different things: 2 = More than half the days Trouble relaxin = More than half the days Being so restless that it is hard to sit still: 1 = Several days Becoming easily annoyed or irritable: 1 = Several days Feeling afraid as if something awful might happen: 1 = Several days Total CARLOS-7 score (0-4 normal; 5-9 mild; 10-14 moderate; 15-21 severe): 9 Source: Developed by Drs. Jesus Douglas, Jessenia Andrew, Charli Person and colleagues, with an educational halie from [employer] CARLOS-7 Assessment Billing CARLOS-7 Assessment Tool: CARLOS-7 Assessment 10857 (ff'd by MARI LesPromiseJONE ) ACT Questionnaire In the past 4 weeks, how much of the time did your asthma keep you from getting as much done at work, school or at home?: None of the time During the past 4 weeks, how often did your asthma symptoms wake you up at night or earlier than usual in the morning?: Not at all During the past 4 weeks, how often have you had to use your rescue inhaler or nebulizer medication?: Once a week or less How would you rate your asthma control during the past 4 weeks?: Well controlled ACT Interpretation: Negative Score: 18 Review of Systems Const Reports fatigue (Comes and goes), Denies fever(s), Denies headache(s) and Denies weakness Eyes Denies change in vision, Denies eye discharge and Denies itchy eyes ENT Denies dizziness, Denies headache(s), Denies nasal congestion, Denies nasal discharge and Denies sore throat Card Denies chest pain, Denies lightheadedness, Denies palpitations and Denies dyspnea Resp Denies chest congestion, Denies cough, Denies dyspnea and Denies wheezing GI Denies abdominal pain, Denies change in bowel habits and Denies heartburn Denies urinary frequency, Denies dysuria and Denies urinary urgency Musc Reports stiffness Skin/Breast Denies lesions and Denies rash Neuro Denies dizziness, Denies headache(s) and Denies weakness Psych Reports as per HPI Endo Reports fatigue (Comes and goes), Denies polydipsia, Denies polyuria and Denies palpitations Waldemar/Lymph Denies easy bruising Aller/Immun Denies itchy eyes, Denies seasonal rhinorrhea and Denies wheezing Physical exam (Primary Care) Vital Signs: Last Vital Signs Pulse 75 09/21/24 08:33 BP 160/100 H 09/21/24 08:33 Pulse Ox 98 09/21/24 08:33 Oxygen Delivery Method Room Air 09/21/24 08:33 BMI result Body Mass Index 32.2 BMI Assessment/Plan discussion: High BMI High, discussed plan: lifestyle, weight reduction and dietary Tobacco/Smoking Status: Tobacco use Status Tobacco use date assessed 09/21/24 09/21/24 08:35 Patient Tobacco Use Status Former Tobacco user 09/21/24 08:35 e-Cigarette/Vaping Use Never Used 09/21/24 08:35 PHQ-9: PHQ-9 Score PHQ-9: Total score 7 09/24/24 04:14 Depression Screening Interpretation: Positive (currently followed by [facility] BLA[facility] ) Depression Screening Follow-up: Existing condition, In treatment and Community Mental Health Worker F/U Thrive Assessment: Date of Thrive Assessment Date Thrive assessed 09/21/24 09/21/24 08:35 Currently or been in a relationship where the following occur: No concerns reported Advance Care Planning discussion: Completed/Scanned Date of discussion: 09/21/24 Who was present: patient Forms completed: Health Care Proxy Time spent: 16-45 minutes Actual minutes spent: 4 Const General: no acute distress and alert Nutritional Appearance: obese Orientation/consciousness: patient oriented x3 Limitations: physical limitations HENMT Head: Yes normocephalic Ears: TM's normal bilaterally and EAC's normal General nose exam: Normal external nose present and No nasal discharge present Face and sinus: Yes face symmetric Mouth: Normal oral and palatal mucosa present, oropharynx normal and moist mucous membranes abnormal Eyes General: appearance normal, both eyes and all related structures Neck Neck: Yes no lymphadenopathy Thyroid: Thyroid normal Chest Chest palpation & inspection: normal inspection of the chest Breast/axilla inspection: normal inspection of the breasts Breast/axilla palpation: normal palpation of the breasts Resp Auscultation: clear to auscultation bilaterally Cardio Other: S1-S2 present regular rate and rhythm GI Palpation (GI): Soft to palpation, nontender, no guarding and no masses Auscultation: normal bowel sounds General: Yes no CVA tenderness Back/Spine/Pelvis Back: no CVA tenderness Cervical Spine: cervical muscular tenderness Skin General skin exam: no rashes or lesions noted Neuro General: patient oriented x3, gait normal, moves all extremities, Normal light touch and pain sensation, no focal motor deficits and CN's II-XI intact bilaterally Gait exam (Neuro): Normal gait present Extrem General: Yes full ROM, Yes no joint enlargement, Yes no pedal edema, Yes no calf tenderness and Yes normal gait Psych Appearance: grossly normal and well kempt Mental Status: mental status grossly normal Speech and movement: Normal speech and movement present Affect: normal affect Attitude: cooperative Coding Level of Care Code Est Pt Prev Care 40-64y(67446) Diagnoses Annual visit for general adult medical examination with abnormal findings Z00.01 Essential hypertension I10 Primary osteoarthritis of both hips M16.0 Osteoarthritis type: primary Mild intermittent asthma without complication J45.20 Asthma complication type: uncomplicated Degenerative disc disease, cervical M50.30 Depression with anxiety F41.8 Vitamin D deficiency E55.9 Advanced directives, counseling/discussion Z71.89 Additional Codes CARLOS-7 Assessment Billing - CARLOS-7 Assessment Tool: CARLOS-7 Assessment 30703 ([id number]) Vital Signs *Quality* - Advance Care Planning discussion: Completed/Scanned ([id number]) Vital Signs *Quality* - Time spent: 16-45 minutes ([id number]) PHQ-9 - 71804 - PHQ-9 Billing: Yes ([id number]) Asthma Control Questionnaire - ACT Interpretation: Negative ([id number]) Assessment & Plan Assessment & Plan (1) Annual visit for general adult medical examination with abnormal findings: Code(s): Z00.01 - Encounter for general adult medical examination with abnormal findings Category: Medical (2) Essential hypertension: Code(s): I10 - Essential (primary) hypertension Category: Medical (3) Osteoarthritis of hips, bilateral: Code(s): M16.0 - Bilateral primary osteoarthritis of hip Category: Medical Qualifiers: Osteoarthritis type: primary Qualified Code(s): M16.0 - Bilateral primary osteoarthritis of hip (4) Mild intermittent asthma: Code(s): J45.20 - Mild intermittent asthma, uncomplicated Category: Medical Qualifiers: Asthma complication type: uncomplicated Qualified Code(s): J45.20 - Mild intermittent asthma, uncomplicated (5) Degenerative disc disease, cervical: Code(s): M50.30 - Other cervical disc degeneration, unspecified cervical region Category: Medical (6) Depression with anxiety: Comment: Followed by [facility] Code(s): F41.8 - Other specified anxiety disorders Category: Medical Plan: [facility] (7) Vitamin D deficiency: Code(s): E55.9 - Vitamin D deficiency, unspecified Category: Medical (8) Advanced directives, counseling/discussion: Code(s): Z71.89 - Other specified counseling Plan: Initiated the conversation about Advanced Directives. Advanced Directives help patients prepare for current and future decisions about their medical treatment and place of care. Discussed with patient that it is a process where a patients current condition and prognosis are reviewed, their wishes for information regarding their illness are elicited, and likely medical dilemmas are presented and options discussed. Healthcare proxy form completed today. The form can be amended as needed, reviewed yearly and make changes as needed Plan - Seasonal vaccines, COVID-19 boosters up to date; flu vaccination declined. - Consideration of bone density scan due to fracture history, pending insurance approval. - Patient instructed regarding skin protection due to history of basal cell carcinoma. - Essential Hypertension: Initiate Lisinopril 5 mg daily and monitor blood pressure with follow-up in two weeks with nurse to check blood pressure. report any adverse symptoms such as a dry cough. - Routine Health Maintenance: Perform mammogram in September, already scheduled, schedule overdue Pap smear, and complete Cologuard testing if insurance permits. - Vitamin D Deficiency: Continue vitamin D supplementation; retest levels with next blood screening. - Blood Work: Repeat fasting blood work two weeks post-initiation of Lisinopril. - Menopausal Symptoms: Continue with conservative management of symptoms. - Chronic Pain: Maintain current management strategies, consider ongoing monitoring of hip joint status. - Anxiety: Continue therapy and medication. Continue with non-pharmacological interventions such as yoga and meditation. . Patient was informed and verbally consented to the use of an ambient scribe for clinic note documentation during this visit. Orders: Orders Alanine Aminotransferase 09/21/24 E55.9 - Vitamin D deficiency, unspecified, F41.8 - Other specified anxiety disorders, Z00.01 - Encounter for general adult medical examination with abnormal findings, Z13.1 - Encounter for screening for diabetes mellitus, Z13.220 - Encounter for screening for lipoid disorders Aspartate Amino Transferase 09/21/24 E55.9 - Vitamin D deficiency, unspecified, F41.8 - Other specified anxiety disorders, Z00.01 - Encounter for general adult medical examination with abnormal findings, Z13.1 - Encounter for screening for diabetes mellitus, Z13.220 - Encounter for screening for lipoid disorders Lipid Panel 09/21/24 E55.9 - Vitamin D deficiency, unspecified, F41.8 - Other specified anxiety disorders, Z00.01 - Encounter for general adult medical examination with abnormal findings, Z13.1 - Encounter for screening for diabetes mellitus, Z13.220 - Encounter for screening for lipoid disorders Basic Metabolic Panel Fasting 09/21/24 E55.9 - Vitamin D deficiency, unspecified, F41.8 - Other specified anxiety disorders, Z00.01 - Encounter for general adult medical examination with abnormal findings, Z13.1 - Encounter for screening for diabetes mellitus, Z13.220 - Encounter for screening for lipoid disorders Vitamin D 25-OH Total 09/21/24 E55.9 - Vitamin D deficiency, unspecified, F41.8 - Other specified anxiety disorders, Z00.01 - Encounter for general adult medical examination with abnormal findings, Z13.1 - Encounter for screening for diabetes mellitus, Z13.220 - Encounter for screening for lipoid disorders Referrals Cologuard Test Z12.11 - Encounter for screening for malignant neoplasm of colon, Z12.12 - Encounter for screening for malignant neoplasm of rectum Medications: New lisinopril 5 mg PO DAILY 30 tabs 0RF
[2024-09-21 08:33] VITALS: BP 160/100; PULSE 75; O2SAT 98; BMI 32.2
== END 2024-09-21 09:43 | disposition home or self-care (01) ==
PROVIDERS: PCP Internal Medicine; Visit Provider Internal Medicine
DX: Z00.01 Encounter for general adult medical examination with abnormal findings (principal); I10 Essential (primary) hypertension; M16.0 Bilateral primary osteoarthritis of hip; J45.20 Mild intermittent asthma, uncomplicated; M50.30 Other cervical disc degeneration, unspecified cervical region; F41.8 Other specified anxiety disorders; E55.9 Vitamin D deficiency, unspecified; Z71.89 Other specified counseling; Z00.00 Encounter for general adult medical examination without abnormal findings

== ENCOUNTER → 2024-09-21 08:21 | Outpatient (BNVA) | payer OTHER, MEDICARE, SELFPAY | PROVIDERS: PCP Internal Medicine; Visit Provider Internal Medicine | DX: Z00.01 Encounter for general adult medical examination with abnormal findings (principal); I10 Essential (primary) hypertension; M16.0 Bilateral primary osteoarthritis of hip; J45.20 Mild intermittent asthma, uncomplicated; M50.30 Other cervical disc degeneration, unspecified cervical region; F41.8 Other specified anxiety disorders; E55.9 Vitamin D deficiency, unspecified; Z71.89 Other specified counseling; Z79.899 Other long term (current) drug therapy; Z28.21 Immunization not carried out because of patient refusal | CPT/HCPCS: 96127; 96160 ==

== ENCOUNTER 2024-10-07 07:44 | Outpatient (REF) | payer OTHER, MEDICARE, SELFPAY ==
[2024-10-07 11:05] LABS: Alanine Aminotransferase 17 U/L (0-31); Anion Gap 10 (12-20); Aspartate Amino Transferase 22 U/L (5-31); Blood Urea Nitrogen 14 mg/dL (9-16); Calcium 9.1 mg/dL (8.4-10.2); Carbon Dioxide 27 mmol/L (22-29); Chloride 107 mmol/L (96-108); Cholesterol 179 mg/dL (<200); Estimated Glomerular Filt Rate > 60; Glucose Fasting 98 mg/dL (60-99); HDL Cholesterol 69 mg/dL (>40); LDL Cholesterol Calculated 99 mg/dL (<100); Potassium 4.1 mmol/L (3.3-5.1); Sodium 140 mmol/L (135-145); Triglycerides 57 mg/dL (<150)
[2024-10-07 11:11] LABS: Vitamin D 25-OH Total 53.6 ng/mL (>30)
== END 2024-10-07 07:45 | disposition home or self-care (01) ==
LOC: HO.HMGCLDS 07:44
PROVIDERS: PCP Internal Medicine; Visit Provider Internal Medicine
DX: Z00.01 Encounter for general adult medical examination with abnormal findings (principal); F41.8 Other specified anxiety disorders; E55.9 Vitamin D deficiency, unspecified; Z13.220 Encounter for screening for lipoid disorders; Z13.1 Encounter for screening for diabetes mellitus
CPT/HCPCS: 36415; 80048; 80061; 82306; 84450; 84460

== ENCOUNTER → 2024-10-07 07:44 | Outpatient (BNVA) | payer OTHER, MEDICARE, SELFPAY | PROVIDERS: PCP Internal Medicine ==

== ENCOUNTER 2024-10-10 09:01 | Outpatient (REF) | payer OTHER, MEDICARE, SELFPAY | END 2024-10-10 09:02 | disposition home or self-care (01) | LOC: HO.MAMMO 09:01 | PROVIDERS: Visit Provider Internal Medicine | DX: Z12.31 Encounter for screening mammogram for malignant neoplasm of breast (principal) | CPT/HCPCS: 77063; 77067 ==

== ENCOUNTER → 2024-10-10 09:15 | Outpatient (BNV) | payer OTHER, MEDICARE, SELFPAY | PROVIDERS: Visit Provider Internal Medicine | DX: Z12.31 Encounter for screening mammogram for malignant neoplasm of breast (principal) | CPT/HCPCS: 77063; 77067 ==

== ENCOUNTER → 2024-11-11 08:22 | Outpatient (BNVA) | payer OTHER, MEDICARE, SELFPAY | PROVIDERS: PCP Internal Medicine ==

== ENCOUNTER 2025-09-28 08:25 | Outpatient (AMB) | payer MEDICARE, SELFPAY ==
--- NOTE | 2025-09-28 08:32 | AM.OFFVISMDC ---
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 49-year-old lady with past medical history significant for hypertension, cervical disc disorder with radiculopathy, depression with anxiety and osteoarthritis, here today for her initial annual wellness visit She is up-to-date with her cervical cancer screening, goes to [facility], sees Dr. Redd. Copy of last Pap smear requested. She is up-to-date with her screening mammogram done 10/10/2024 already has an appointment scheduled for this month She had a Cologuard done earlier this year but it was not processed due to excessive stool given, repeat Cologuard kit sent for colon cancer testing. She declined getting a flu vaccine at this time, does not want to get a COVID booster, and is up-to-date with her Tdap. She had fasting lipids and fasting glucose levels checked 10/07/2024 with normal findings. ? Medical / Social History Reviewed? Past Medical History ?Yes . ? Bone Gap of Care / Care Team list updated ?Yes . ? Surgical/Hospitalization History ?Yes . ? Current Medications (including OTC and supplements) ?Yes . ? Family History ?Yes . ? Tobacco Control form ?Yes . ? AUDIT-C (Alcohol use) form ?Yes . ? Illicit drug use in Social History ?Yes . ? Current diagnosis of depression? ?No ? Appropriate PHQ2/PHQ9 completed ?Yes . ? Data entered by ?Construction Assistant and reviewed by provider ? Fall Risk ? Fall History? Have you had any falls with injury in the past year? ?No . ? Have you had two or more falls in the past year? ?No . ? Fall Risk Assessment: ?No falls in the past year . ? HRA filled out by the patient, reviewed by Provider and scanned. ? AWV ? Balance? Romberg ?negative . ? Tandem walk ?Yes . ? Walk and Turn ?Yes . ? Rise from sit to stand ?Yes . ?Vision? Corrective lens ?Yes ? Vision screen ? Up-to-date, goes to vision works in [employer] ?Hearing? Whisper test ?pass . ?Written Plan?Completed. See Patient Documents. Up-to-date with her healthcare proxy done 09/21/2024? [facility] Medical History Essential hypertension Avulsion fracture of calcaneus with delayed healing Vitamin D deficiency Annual visit for general adult medical examination with abnormal findings Cervical disc disorder at C4-C5 level with radiculopathy Depression with anxiety Degenerative disc disease, cervical Osteoarthritis of hips, bilateral Surgical History Hx of section History of arthroplasty of left hip Family History Father Substance use disorder Paternal Uncle Prostate cancer Substance use disorder Mother Substance use disorder Mental health disorder Maternal Uncle Substance use disorder Maternal Uncle Substance use disorder Maternal Uncle Substance use disorder Social History Housing: House Alcohol intake: current Alcohol intake frequency: holidays/special occasions only Patient Tobacco Use Status: Former Tobacco user e-Cigarette/Vaping Use: Never Used Substance Use Type: Marijuana service: No Current occupational status: unemployed Cognitive needs: No Hearing needs: No Vision needs: Yes Questionnaire Medicare Wellness Checkup What gender do you identify with?: female During the past 4 weeks, how much have you been bothered by emotional problems such as feeling anxious, depressed, irritable, sad or downhearted, and blue?: moderately During the past 4 weeks, has your physical & emotional health limited your social activities with family, friends, neighbors, or groups?: slightly During the past 4 weeks, how much bodily pain have you generally had?: moderate pain During the past 4 weeks, was someone available to help you if you needed & wanted help?: yes, quite a bit During the past 4 weeks, what was the hardest physical activity you could do for at least 2 minutes?: light Can you get to places out of walking distance without help? (For eg., can you travel alone on buses, taxis or drive your car?): Yes Can you go shopping for groceries or clothes without someone's help?: Yes Can you prepare your own meals?: Yes Can you do your housework without help?: No Because of any health problems, do you need the help of another person with your personal care needs such as eating, bathing, dressing or getting around the house?: Yes Can you handle your own money without help?: Yes During the past 4 weeks, how would you rate your health in general?: good During the past 4 weeks how have things been going for you?: good & bad parts about equal Are you having difficulties driving your car?: no Do you always fasten your seat belt when you are in a car?: yes, usually During past 4 weeks, have you been bothered by the following: never: Falling or dizzy when standing up, Sexual problems?, Teeth or denture problems? and Problems using the telephone?, seldom: Trouble eating well? and sometimes: Tiredness or fatigue? Have you fallen 2 or more times in the past year?: No Are you afraid of falling?: No Are you a smoker?: no During the past 4 weeks, how many drinks of wine, beer, or other alcoholic beverages did you have?: 2-5 drinks per week Do you exercise for about 20 minutes 3 or more times a week?: yes, some of the time Have you been given information to help with the following?: no: Hazards in your house that might hurt you? and no: Keeping track of your medications? How often do you have trouble taking medicines the way you have been told to take them?: I always take medicine as prescribed How confident are you that you can control & manage most of your health problems?: very confident What is your race?: White Mini Mental State Exam (MMSE) Orientation What is the (year) (season) (date) (day) (month)?: year (2024), season (Fall), date (09/28/25), day () and month () Where are we (state) (county) (town or city) (hospital) (floor)?: state ([facility]), [facility] ([place]), town or city ([place]) and hospital/clinic ([facility]) Score Score: 9 Activity of Daily Living Bathing - sponge bath, tub bath or shower: receives no assistance (gets in/out by self, if usual bathing means Dressing - getting clothes from closets & drawers, including inner/outer garments & fasteners.: gets clothes & gets completely dressed without help Toileting - going to the 'toilet room' for urine/bowel elimination & cleaning self/arranging clothes: goes to toilet room, cleans self, arranges clothes without help Transfer: moves in & out of bed and chair without help (may use support object) Continence: has occasional 'accidents' Feeding: feeds self without help Total Score: 0 Information obtained from: patient Using telephone: independent Traveling: needs assistance Shopping: needs assistance Preparing meals: independent Housework: needs assistance Taking medicine: independent Managing money: independent PHQ-9 Over the last 2 weeks, how often have you been bothered by any of the following problems? 1. Little interest or pleasure in doing things: several days 2. Feeling down, depressed, or hopeless: several days 3. Trouble falling or staying asleep, or sleeping too much: nearly every day 4. Feeling tired or having little energy: several days 5. Poor appetite or overeating: not at all 6. Feeling bad about yourself - or that you are a failure or have let yourself or your family down: not at all 7. Trouble concentrating on things, such as reading the newspaper or watching television: several days 8. Moving or speaking so slowly that other people could have noticed. Or the opposite - being so fidgety or restless that you have been moving around a lot more than usual: several days 9. Thoughts that you would be better off or of hurting yourself in some way: not at all Total score: 8 Depression Screening Interpretation: Negative Depression Screening Done: Yes 09427 - PHQ-9 Billing: Yes Source: Developed by Drs. Jesus Douglas, Jessenia Andrew, Charli Person and colleagues, with an educational halie from [employer]. Physical Exam Vital Signs: Last Vital Signs Temp 98.1 F 09/28/25 08:42 Pulse 78 09/28/25 08:42 Resp 16 09/28/25 08:42 BP 125/80 09/28/25 08:42 Pulse Ox 98 09/28/25 08:42 Oxygen Delivery Method Room Air 09/28/25 08:42 BMI result Body Mass Index 35.9 Assessment & Plan Assessment & Plan (1) Depression with anxiety: Comment: Followed by MARI BLAKE Code(s): F41.8 - Other specified anxiety disorders Plan: Followed by Mari Blake currently stable on bupropion HCL XL and takes lorazepam as needed for acute anxiety attacks (2) Cervical disc disorder at C4-C5 level with radiculopathy: Code(s): M50.121 - Cervical disc disorder at C4-C5 level with radiculopathy Plan: Takes cyclobenzaprine 5 mg 1 tab twice a day as needed and Tylenol extra strength for pain (3) Vitamin D deficiency: Code(s): E55.9 - Vitamin D deficiency, unspecified Plan: Continue with vitamin-D 3 supplements at least 2000 units daily (4) Essential hypertension: Code(s): I10 - Essential (primary) hypertension Plan: Blood pressure controlled on present treatment lisinopril 5 mg daily (5) Encounter for annual wellness exam in Medicare patient: Code(s): Z00.00 - Encounter for general adult medical examination without abnormal findings Plan: Medical wellness checklist reviewed, discussed with patient and updated. A repeat Cologuard test was ordered. Up-to-date with her healthcare proxy. Reminded to get Orders: Orders Basic Metabolic Panel Fasting 09/28/25 E55.9 - Vitamin D deficiency, unspecified, F41.8 - Other specified anxiety disorders, I10 - Essential (primary) hypertension, M50.121 - Cervical disc disorder at C4-C5 level with radiculopathy, Z00.00 - Encounter for general adult medical examination without abnormal findings Vitamin D 25-OH Total 09/28/25 E55.9 - Vitamin D deficiency, unspecified, F41.8 - Other specified anxiety disorders, I10 - Essential (primary) hypertension, M50.121 - Cervical disc disorder at C4-C5 level with radiculopathy, Z00.00 - Encounter for general adult medical examination without abnormal findings Lipid Panel 09/28/25 E55.9 - Vitamin D deficiency, unspecified, F41.8 - Other specified anxiety disorders, I10 - Essential (primary) hypertension, M50.121 - Cervical disc disorder at C4-C5 level with radiculopathy, Z00.00 - Encounter for general adult medical examination without abnormal findings Aspartate Amino Transferase 09/28/25 E55.9 - Vitamin D deficiency, unspecified, F41.8 - Other specified anxiety disorders, I10 - Essential (primary) hypertension, M50.121 - Cervical disc disorder at C4-C5 level with radiculopathy, Z00.00 - Encounter for general adult medical examination without abnormal findings Alanine Aminotransferase 09/28/25 E55.9 - Vitamin D deficiency, unspecified, F41.8 - Other specified anxiety disorders, I10 - Essential (primary) hypertension, M50.121 - Cervical disc disorder at C4-C5 level with radiculopathy, Z00.00 - Encounter for general adult medical examination without abnormal findings Complete Blood Count Auto Diff 09/28/25 E55.9 - Vitamin D deficiency, unspecified, F41.8 - Other specified anxiety disorders, I10 - Essential (primary) hypertension, M50.121 - Cervical disc disorder at C4-C5 level with radiculopathy, Z00.00 - Encounter for general adult medical examination without abnormal findings Referrals Cologuard Test Z12.11 - Encounter for screening for malignant neoplasm of colon, Z12.12 - Encounter for screening for malignant neoplasm of rectum Quality Reporting (2019) Depression/Bipolar (159/160/161/177) PHQ-9: Total score: 8 Coding Level of Care Code Medicare First (G0438) Diagnoses Depression with anxiety F41.8 Cervical disc disorder at C4-C5 level with radiculopathy M50.121 Vitamin D deficiency E55.9 Essential hypertension I10 Encounter for annual wellness exam in Medicare patient Z00.00 CPT Codes Advance Care Planning - Advance Care Planning discussion: On file, no changes ([id number]) Advance Care Planning - Time spent: 16-45 minutes ([id number]) Additional Codes PHQ-9 - 85257 - PHQ-9 Billing: Yes ([id number]) Advance Care Planning Advance Care Planning discussion: On file, no changes Date of discussion: 10/02/25 Who was present: Patient Forms completed: Health Care Proxy (Done 09/21/2024) Time spent: 16-45 minutes Actual minutes spent: 1
[2025-09-28 08:42] VITALS: BP 125/80; PULSE 78; RESP 16; TEMP 36.7; O2SAT 98; BMI 35.9
== END 2025-09-28 09:29 | disposition home or self-care (01) ==
LOC: HO.HMCC 08:26
PROVIDERS: PCP Internal Medicine; Visit Provider Internal Medicine
DX: Z00.00 Encounter for general adult medical examination without abnormal findings (principal); F41.8 Other specified anxiety disorders; M50.121 Cervical disc disorder at C4-C5 level with radiculopathy; E55.9 Vitamin D deficiency, unspecified; I10 Essential (primary) hypertension

== ENCOUNTER → 2025-09-28 08:25 | Outpatient (BNVA) | payer MEDICARE, SELFPAY | PROVIDERS: PCP Internal Medicine; Visit Provider Internal Medicine | DX: Z13.31 Encounter for screening for depression (principal) | CPT/HCPCS: 96127 ==

== ENCOUNTER 2025-10-16 08:12 | Outpatient (REF) | payer MEDICARE, SELFPAY ==
--- NOTE | ~2025-10-16 | MM_ITS ---
EXAMINATION: MM SCREENING DIGITAL BREAST TOMOSYNTHESIS, BILATERAL CLINICAL INFORMATION: Screening. Asymptomatic. COMPARISON: Mammography: Comparison is made with available priors TECHNIQUE: Digital breast mammography with tomosynthesis is performed in both the craniocaudal and mediolateral oblique views along with computer-aided detection (CAD). FINDINGS: The breasts are heterogeneously dense, which may obscure small masses. There are no significant masses, abnormal calcifications, or other abnormalities. MM/MM tomosynthesis screening BI IMPRESSION: No mammographic evidence of malignancy. ASSESSMENT: BI-RADS Category 1: Negative RECOMMENDATION: Routine annual mammography screening. 1 year F/U This examination should not preclude the clinical evaluation of a suspicious palpable abnormality. This patient's information was entered into a reminder system with a target due date for their next mammogram. Electronically signed by: Fidelia Macias DO 10/18/2025 02:55 PM RAZA
--- OUTSIDE RECORDS SUMMARY | 2025-10-16 08:17 | XMS_ITS | Encounter Summary ---
Author Organization [facility] Address [address] [place] [address] Phone Care Team Providers Care Biblical Languages Professor Name Role Phone VeroDennis Primary Care Provider [phone] Encounter Details Date Type Department Care Team (Late st Contact Info) Description 04/14/2016 Ancillary Orders [facility] Orthopaedic Surgery Trauma Service [address] [facility], [address] [place] [address] Jon Brady MD [address] [facility] [address] [place] [address] Left hip pain (Primary Dx) Social History Tobacco Use Types Packs/Day Years Used Date Smoking Tobacco: Former Comments Unknown Sex and Gender Information Value Date Recorded Sex Assigned at Not on file Legal Sex Female 6:02 PM EST Gender Identity Not on file Sexual Orientation Not on file documented as of this encounter Plan of Treatment Not on file documented as of this encounter Results * XR HIP 2 VW LEFT PLUS PELVIS (04/14/2016 10:18 AM EDT) Anatomical Region Laterality Modality Hip, Pelvis Radiographic Maryjane ging 04/14/2016 10:3 1 AM EDT Impressions 04/14/2016 10:32 AM EDT IMPRESSION: Left THR, no complication Narrative 04/14/2016 10:32 AM EDT Left Hip/Pelvis 2-3 Views COMPARISON: 08/14/2014 FINDINGS: Left THR showing no evidence of hardware complication or malalignment. No fracture. DJD of lower lumbar spine, sacroiliac joints and symphysis pubis is present. The right hip shows mild degenerative change. Procedure Note Mike Busch MD - 04/14/2016 Left Hip/Pelvis 2-3 Views COMPARISON: 08/14/2014 FINDINGS: Left THR showing no evidence of hardware complication or malalignment.No fracture. DJD of lower lumbar spine, sacroiliac joints and symphysis pubisis present. The right hip shows mild degenerative change. IMPRESSION: IMPRESSION: Left THR, no complication us Jon Brady MD IMG XR PELVIS Final Resu lt documented in this encounter Visit Diagnoses Diagnosis Left hip pain Pain in joint, pelvic region and thigh Left hip pain- Primary Pain in joint, pelvic region and thigh documented in this encounter Care Teams Biblical Languages Professor Relationship Specialty Start Date End Date Dennis Pham DO [address] [place] [address] PCP - General 04/25/14 documented as of this encounter Additional Source Comments The information contained in this document represents components of the legal health record. It is not the complete legal health record.[facility]
--- OUTSIDE RECORDS SUMMARY | 2025-10-16 08:17 | XMS_ITS | Clinical Summary ---
Author Organization [facility] Address [address] [place] [address] Phone Care Team Providers Care Lan Specialist Name Role Phone VeroDennis Primary Care Provider [phone]- [phone] Allergies No known active allergies Medications cephalexin (KEFLEX) 500 MG capsule Take 1 capsule by mouth 4 (four) times a day. Take one 1/2 hour prior to dental work and one 6 hours after dental work. 05/22/2014 Active HYDROcodone-jeanmarie taminophen (NORCO) 5-325 mg per tablet Take 1 tablet by mouth every 6 (six) hours. 04/25/2014 Active Active Problems Problem Noted Date Diagnosed Date Hip pain 01/23/2014 Overview (12/16/2014): Hip pain; Left Social History Tobacco Use Types Packs/Day Years Used Date Smoking Tobacco: Former Education Answer Date Recorded Are you interested in more education? Not on azalia e 03/01/2023 Are you concerned about learning? Not on file 03/01/2023 No 03/01/2023 No 03/01/2023 Digital Access Answer Date Recorded No 03/22/2023 No 03/22/2023 No 03/22/2023 Reliable internet access at home? Not on file 03/22/2023 Device with a working camera? Not on file Comments Unknown Sex and Gender Information Value Date Recorded Sex Assigned at Not on file Legal Sex Female 6:02 PM EST Gender Identity Not on file Sexual Orientation Not on file Last Filed Vital Signs Vital Sign Reading Time Taken Comments Blood Pressure 139/84 04/14/2016 10:26 AM EDT Pulse 74 04/14/2016 10:26 AM EDT Temperature - - Respiratory Rate - - Oxygen Saturation - - Inhaled Oxygen Concentration - - Weight 86.2 kg (190 lb) 04/14/2016 10:26 AM EDT Height 172.7 cm (5' 8 ) 04/14/2016 10:26 AM EDT Body Mass Index 28.89 04/14/2016 10:26 AM EDT Plan of Treatment Health Maintenance Due Date Last Done Comments LIPID PANEL 1975 DEPRESSION SCREENING 1987 SMOKING Hx and SMOKELESS TOBACCO SCREENING 1988 HEPATITIS C SCREENING 1993 HIV ONE-TIME SCREENING (18-6 5 YEARS) 1993 PAP SMEAR 1996 MAMMOGRAM 2015 COLOGUARD 2020 COLONOSCOPY 2020 COLORECTAL CANCER SCREENING 2020 FIT TEST 2020 FOBT 2020 SIGMOIDOSCOPY 2020 VIRTUAL COLONOSCOPY 2020 INFLUENZA VACCINE (#1) 2025 COVID-19 VACCINE (2 - 2024-2 6 season) 2025 10/02/2021 Adult Td,Tdap Booster 12/09/2026 12/09/2016 , 10/26/2008 HEPATITIS A VACCINES Aged Out No long er eligible based on patient's age to complete this topic HIB VACCINES Aged Out No longer eligi ble based on patient's age to complete this topic MENINGOCOCCAL VACCINES (ACWY) Aged Out No longer eligible based on patient's age to complete this topic MENINGOCOCCAL VACCINES (B) Aged Out N o longer eligible based on patient's age to complete this topic PNEUMOCOCCAL VACCINES (0-49 years) Aged Out No longer eligible b ased on patient's age to complete this topic Medical Devices Not on file Insurance [employer] PPO EPO [employer] P[employer] EPO [employer] P[employer] EPO [place] [address] [place] [address] [place] [address] [place] [address] [place] [address] [place] [address] [place] [address] [place] [address] [place] [address] [place] [address] PPO EPO Care Teams Lan Specialist Relationship Specialty Start Date End Date Dennis Pham DO [address] [place] [id number] PCP - General 04/25/14 Additional Source Comments The information contained in this document represents components of the legal health record. It is not the complete legal health record.[facility]
== END 2025-10-16 08:13 | disposition home or self-care (01) ==
LOC: HO.MAMMO 08:12
PROVIDERS: Visit Provider Internal Medicine
DX: Z12.31 Encounter for screening mammogram for malignant neoplasm of breast (principal)
CPT/HCPCS: 77063; 77067

== ENCOUNTER → 2025-10-16 08:30 | Outpatient (BNV) | payer MEDICARE, SELFPAY | PROVIDERS: Visit Provider Internal Medicine | DX: Z12.31 Encounter for screening mammogram for malignant neoplasm of breast (principal) | CPT/HCPCS: 77063; 77067 ==